=== PATIENT | female | born 1960 | race Two or more races ===

== ENCOUNTER 2019-11-09 12:46 | Emergency (ER) | payer MEDICAID ==
[~2019-11-09] VITALS: Ht 160 cm; Wt 81.2 kg
[2019-11-09 12:57] VITALS: BP 131/54
[2019-11-09] MEDS ORDERED: KETOROLAC TROMETH 60MG/2ML VIAL IM ONE (15:15)
[2019-11-09] MEDS ORDERED: METHOCARBAMOL 500 MG TAB PO ONE (15:15)
== END 2019-11-09 16:10 | disposition home or self-care (01) ==
LOC: ER 12:46
DX: M54.42 Lumbago with sciatica, left side (principal); N39.0 Urinary tract infection, site not specified; E78.5 Hyperlipidemia, unspecified
CPT/HCPCS: 96372; 99283; J1885